=== PATIENT | male | born 1965 | race African-American/Black ===

== ENCOUNTER 2020-01-02 20:50 | Emergency (ER) | payer BC, MEDICAID ==
[~2020-01-02] VITALS: Ht 170.2 cm; Wt 65.0 kg
[2020-01-02 21:00] VITALS: BP 180/94
--- NOTE | 2020-01-02 21:04 | NUR ---
PT IS VERY SLEEPY, SLOW TO ANSWER QUESTIONS, HAVE TO SHOUT AT HIM TO WAKE UP. HE DENIES INGESTION OF ANY ETOH/DRUGS/MEDICATIONS. SAYS "IM JUST VERY TIRED". CHIEF COMPLAINT UPON ARRIVAL IS ABDOMINAL PAIN AND BLOATING. EKG DONE NO ST ELEVATION
[2020-01-02] MEDS ORDERED: ONDANSETRON ODT 4 MG PO ONE (21:30)
[2020-01-02] MEDS ORDERED: PLEASE ENTER ALLERGIES MC SCH (21:30)
--- NOTE | 2020-01-02 21:42 | NUR ---
LAB HERE DRAWING BLOOD.
[2020-01-02 22:06] LABS: BASOPHILS % (AUTO) 0 % (0-1); EOSINOPHILS % (AUTO) 1 % (1-7); LYMPHOCYTES % (AUTO) 20 % (22-44); MEAN CORPUSCULAR HEMOGLOBIN 31.1 pg (27.5-34.5); MEAN CORPUSCULAR HGB CONC 33.2 g/dL (33.2-36.2); MEAN PLATELET VOLUME 8.9 fL (7.4-10.4); MONOCYTES % (AUTO) 5 % (2-9); NEUTROPHILS % (AUTO) 74 % (42-75); PLATELET COUNT 267 x10^3/uL (130-400); RED BLOOD COUNT 5.45 x10^6/uL (4.38-5.82); RED CELL DISTRIBUTION WIDTH 14.3 % (9.4-14.8)
--- NOTE | 2020-01-02 22:07 | NUR ---
PT IS SLEEPING, VSS.
[2020-01-02 22:08] LABS: ALANINE AMINOTRANSFERASE 31 U/L (12-78); ALBUMIN 3.5 g/dL (3.4-5.0); ANION GAP 3 mmol/L (5-15); CALCIUM 9.2 mg/dL (8.5-10.1); CHLORIDE 107 mmol/L (98-107); CREATININE 0.81 mg/dL (0.7-1.3)
[2020-01-02 22:12] LABS: ALKALINE PHOSPHATASE 93 U/L (45-117); BILIRUBIN,TOTAL 0.6 mg/dL (0.2-1.0); TOTAL PROTEIN 7.3 g/dL (6.4-8.2); TROPONIN I < 0.015 ng/mL (0.000-0.045)
[2020-01-02 22:14] LABS: MD NO
--- NOTE | 2020-01-02 22:28 | NUR ---
TAKEN TO CT WITH TECH.
--- NOTE | 2020-01-02 23:14 | NUR ---
STABLE VS. PT TO BE DISCHARGED.
--- NOTE | 2020-01-02 23:38 | NUR ---
IV DC CATH INTACT, HELD ZOFRAN ORDER BECAUSE PT HAD NO NAUSEA. ALL RX GIVEN TO PT.
== END 2020-01-02 23:40 | disposition home or self-care (01) ==
LOC: ED 23:29
DX: K21.00 Gastro-esophageal reflux disease with esophagitis, without bleeding (principal); R94.31 Abnormal electrocardiogram [ECG] [EKG]; F17.200 Nicotine dependence, unspecified, uncomplicated
CPT/HCPCS: 36415; 74022; 74176; 80053; 83690; 84484; 85025; 93005; 99285

== ENCOUNTER 2020-03-04 06:12 | Emergency (ER) | payer MEDICAID ==
[~2020-03-04] VITALS: Ht 170.2 cm; Wt 65.0 kg
[2020-03-04] MEDS ORDERED: METHOCARBAMOL 750 MG TABLET ONE (07:18)
[2020-03-04] MEDS ORDERED: KETOROLAC 30 MG/1 ML ONE (07:18)
[2020-03-04] MEDS ORDERED: METHOCARBAMOL 750 MG TABLET PO ONE (07:30)
[2020-03-04] MEDS ORDERED: KETOROLAC 30 MG/1 ML IM ONE (07:30)
--- NOTE | 2020-03-04 07:34 | NUR ---
C/O LOW BACK PAIN. STATES "FEELS LIKE THE LAST TIME I PASSED A KIDNEY STONE". PATIENT MEDICATED AT 0725.
[2020-03-04 08:03] VITALS: BP 152/92
== END 2020-03-04 08:05 | disposition home or self-care (01) ==
LOC: ED 07:00
DX: M54.5 Low back pain (principal); K21.9 Gastro-esophageal reflux disease without esophagitis
CPT/HCPCS: 96372; 99283; J1885

== ENCOUNTER 2020-07-09 06:00 | Emergency (ER) | payer MEDICAID ==
[~2020-07-09] VITALS: Ht 167.6 cm; Wt 66.0 kg
--- NOTE | 2020-07-09 06:13 | NUR ---
Patient BIBA c/o abd discomfort. He describes it as reflux and states it started x2 days ago. Patient c/o N/V yesterday but none today. He also c/o diarrhea yesterday. Patient has no GI hx. EMS admin ODT Zofran. Currently patient has no complaints; in NAD. Respirations even and unlabored.
--- NOTE | 2020-07-09 06:42 | NUR ---
Report given to VICTOR MANUEL Marie. Patient care transferred.
[2020-07-09 06:52] LABS: ALANINE AMINOTRANSFERASE 25 U/L (12-78); ALBUMIN 3.8 g/dL (3.4-5.0); ANION GAP 6 mmol/L (5-15); BASOPHILS % (AUTO) 1 % (0-1); CALCIUM 9.1 mg/dL (8.5-10.1); CHLORIDE 102 mmol/L (98-107); CREATININE 0.95 mg/dL (0.7-1.3); EOSINOPHILS % (AUTO) 1 % (1-7); LYMPHOCYTES % (AUTO) 23 % (22-44); MD NO; MEAN CORPUSCULAR HEMOGLOBIN 31.4 pg (27.5-34.5); MEAN CORPUSCULAR HGB CONC 33.8 g/dL (33.2-36.2); MEAN PLATELET VOLUME 8.8 fL (7.4-10.4); MONOCYTES % (AUTO) 9 % (2-9); NEUTROPHILS % (AUTO) 66 % (42-75); PLATELET COUNT 271 x10^3/uL (130-400); RED BLOOD COUNT 6.09 x10^6/uL (4.38-5.82); RED CELL DISTRIBUTION WIDTH 13.8 % (9.4-14.8)
--- NOTE | 2020-07-09 06:53 | NUR ---
report received from julio c hwang.
[2020-07-09 06:54] LABS: ALKALINE PHOSPHATASE 110 U/L (45-117); BILIRUBIN,TOTAL 1.2 mg/dL (0.2-1.0); TOTAL PROTEIN 8.2 g/dL (6.4-8.2)
[2020-07-09 07:19] VITALS: BP 136/96
--- NOTE | 2020-07-09 07:20 | NUR ---
Patient given discharge instructions and they have confirmed that they understand the instructions.
== END 2020-07-09 07:21 | disposition home or self-care (01) ==
LOC: ED 06:23
DX: K52.9 Noninfective gastroenteritis and colitis, unspecified (principal); R11.2 Nausea with vomiting, unspecified; K21.9 Gastro-esophageal reflux disease without esophagitis
CPT/HCPCS: 36415; 80053; 83690; 85025; 99283